=== PATIENT | male | born 2000 | race Caucasian/White ===

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

== ENCOUNTER 2020-04-29 09:44 | Emergency (ER) | payer OTHER, BC, SELFPAY ==
[~2020-04-29] VITALS: Ht 182.9 cm; Wt 80.3 kg
[~2020-04-29 09:44] MED LIST: HUMULIN R100 U/1 M1 SC; LEVEMIR100 U/M1 SQ
[2020-04-29 10:15] VITALS: Ht 182.9 cm; Wt 80.3 kg
[2020-04-29 11:35] VITALS: BP 110/53
== END 2020-04-29 12:37 | disposition home or self-care (01) ==
LOC: ED 09:44
DX: R05 Cough (principal); M79.10 Myalgia, unspecified site; E11.9 Type 2 diabetes mellitus without complications; Z20.828 Contact with and (suspected) exposure to other viral communicable diseases
CPT/HCPCS: Q0092; U0003-CS